=== PATIENT | male | born 1995 | race Caucasian/White ===

== ENCOUNTER 2016-12-09 21:52 | Inpatient (IN) | payer MEDICAID ==
[~2016-12-09] VITALS: Ht 170.2 cm; Wt 83.0 kg
[~2016-12-09 21:52] MED LIST: FLUO-191 PO; HALO5 PO; MOM30 PO; OLAN10TA6 PO; PRAZ1 PO; RISP4 PO; TRAZ-144 PO
[2016-12-10] MEDS ORDERED: HALOPERIDOL LACTATE 5 MG/ML VIAL IM ONE
[2016-12-10] MEDS ORDERED: LORazepam 2 MG/ML VIAL IVP ONE
[2016-12-10] MEDS ORDERED: DiphenhydrAMINE HCL 50 MG/ML VIAL IM ONE
[2016-12-10] MEDS ORDERED: LORazepam 2 MG/ML VIAL IM ONE (00:15)
[2016-12-10 00:27] LABS: BASOPHILS # (AUTO) 0.03 K/uL (0.00-0.20); BASOPHILS % (AUTO) 0.4 % (0.0-2.0); EOSINOPHILS # (AUTO) 0.07 K/uL (0.00-0.70); EOSINOPHILS % (AUTO) 1.01 % (1.0-6.0); HEMATOCRIT 46.7 % (41-53); HEMOGLOBIN 15.4 g/dL (13.5-17.5); LYMPHOCYTES # (AUTO) 1.7 K/uL (1.0-4.8); LYMPHOCYTES % (AUTO) 23.6 % (22.0-44.0); MEAN CORPUSCULAR HEMOGLOBIN 30.2 pg (26.0-34.0); MEAN CORPUSCULAR VOLUME 92 fL (80-100); MONOCYTES # (AUTO) 0.7 K/uL (0.1-1.0); NEUTROPHILS # (AUTO) 4.8 K/uL (1.8-7.7); PLATELET COUNT (AUTO) 164 K/uL (150-450); RED CELL DISTRIBUTION WIDTH 12.6 % (11.5-14.5); WHITE BLOOD COUNT (AUTO) 7.3 K/uL (4.5-11.0)
[2016-12-10 00:37] LABS: ANION GAP 13 mmol/L (8-16); CALCIUM, TOTAL 8.7 mg/dL (8.8-10.5); CARBON DIOXIDE 25 mmol/L (22-29); CHLORIDE 101 mmol/L (98-107); GLOMERULAR FILTR. RATE CALC > 60 mL/min (>60); POTASSIUM 3.3 mmol/L (3.5-5.1); SODIUM SERUM 139 mmol/L (136-145); UREA NITROGEN, BLOOD 9 mg/dL (7-18)
[2016-12-10 00:44] LABS: ALANINE AMINOTRANSFERASE 18 U/L (12-78); ALBUMIN 3.9 g/dL (3.4-5.0); ASPARTATE AMINOTRANSFERASE 28 U/L (15-37); BILIRUBIN,TOTAL 0.7 mg/dL (0.1-1.0); TOTAL PROTEIN, SERUM 7.5 g/dL (6.4-8.2)
[2016-12-10] MEDS ORDERED: LORazepam 2 MG TABLET PO PRN (10:15)
[2016-12-10] MEDS ORDERED: ZOLPIDEM TARTRATE 10 MG TABLET PO PRN (10:15)
[2016-12-10] MEDS ORDERED: HALOPERIDOL 5 MG TABLET PO PRN (10:15)
[2016-12-10 13:32] VITALS: BP 118/60
[2016-12-10] MEDS ORDERED: PRAZ2 PO (13:32)
[2016-12-10] MEDS ORDERED: OLAN5Z PO (13:32)
[2016-12-10] MEDS ORDERED: -PHARMACY VACCINE NOTE- MISC ONE ×2 (13:45)
[2016-12-10] MEDS ORDERED: INFLUENZA VIRUS VACCINE QVS 2016-17 (3YR+)/PF 60 MCG/0.5 ML SYRINGE IM ONE (13:45)
[2016-12-10] MEDS ORDERED: POTASSIUM CHLORIDE 20 MEQ ER TABLET PO ONE (17:00)
[2016-12-10 17:33] VITALS: BP 123/66
[2016-12-10] MEDS: TraZODone HCL 100 MG TABLET PO SCH (21:03)
[2016-12-11 06:45] VITALS: BP 112/62
[2016-12-11 08:09] VITALS: BP 110/69
[2016-12-11] MEDS: RisperiDONE 3 MG TABLET PO SCH ×2 (08:36→16:36)
[2016-12-11] MEDS ORDERED: LOPERAMIDE HCL 2 MG CAPSULE PO PRN (10:00)
[2016-12-11] MEDS ORDERED: BACITRACIN 28.4 GM OINTMENT TP PRN (10:00)
[2016-12-11] MEDS ORDERED: MAG HYDROX/AL HYDROX/SIMETH ES 30 ML SUSPENSION UDCUP PO PRN (10:00)
[2016-12-11] MEDS ORDERED: MAGNESIUM HYDROXIDE SUSPENSION 30 ML UDCUP PO PRN (10:00)
[2016-12-11] MEDS ORDERED: IBUPROFEN 600 MG TABLET PO PRN (10:00)
[2016-12-11] MEDS ORDERED: ONDANSETRON HCL 4 MG TABLET PO PRN (10:00)
[2016-12-11] MEDS ORDERED: CloNIDine HCL 0.1 MG TABLET PO PRN (10:00)
[2016-12-11] MEDS ORDERED: PETROLATUM,WHITE 71 GM JELLY TP PRN (10:00)
[2016-12-11] MEDS ORDERED: ALBUTEROL SULFATE HFA 90 MCG/PUFF 8 GM INHALER IH PRN (10:00)
[2016-12-11] MEDS ORDERED: ACETAMINOPHEN 325 MG TABLET PO PRN (10:00)
[2016-12-11] MEDS ORDERED: BENZOCAINE/MENTHOL LOZENGE MM PRN (10:00)
[2016-12-11 16:38] VITALS: BP 124/71
[2016-12-11] MEDS: TraZODone HCL 100 MG TABLET PO SCH (20:40)
[2016-12-12 00:09] VITALS: BP 117/69
[2016-12-12 08:09] VITALS: BP 124/76
[2016-12-12] MEDS: RisperiDONE 3 MG TABLET PO SCH ×2 (09:44→16:50)
[2016-12-12 16:00] VITALS: BP 118/64
[2016-12-12] MEDS: TraZODone HCL 100 MG TABLET PO SCH (20:38)
[2016-12-13 00:17] VITALS: BP 121/68
[2016-12-13 08:37] VITALS: BP 129/75
[2016-12-13] MEDS: RisperiDONE 3 MG TABLET PO SCH ×2 (08:46→16:42)
[2016-12-13 16:22] VITALS: BP 109/68
[2016-12-13] MEDS: TraZODone HCL 100 MG TABLET PO SCH (20:40)
[2016-12-14 01:22] VITALS: BP 101/65
[2016-12-14] MEDS ORDERED: RISP3 PO (08:10)
[2016-12-14 09:02] VITALS: BP 134/76
[2016-12-14] MEDS: RisperiDONE 3 MG TABLET PO SCH (09:07)
== END 2016-12-14 11:40 | disposition home or self-care (01) | DRG 750 ==
LOC: EMS 21:53 → B2S 12-10 10:07
PROVIDERS: ADMIT Psychiatry & Neurology Psychiatry; ATTEND Psychiatry & Neurology Psychiatry
DX: F20.0 Paranoid schizophrenia (principal); F15.20 Other stimulant dependence, uncomplicated; F17.200 Nicotine dependence, unspecified, uncomplicated; G47.00 Insomnia, unspecified; E87.6 Hypokalemia; F15.10 Other stimulant abuse, uncomplicated; Z79.899 Other long term (current) drug therapy
CPT/HCPCS: 84132; 96372; 99291; G0480; J1200; J1630; J2060

== ENCOUNTER 2017-12-19 21:16 | Inpatient (IN) | payer MEDICAID ==
[~2017-12-19] VITALS: Ht 170.2 cm; Wt 78.0 kg
[~2017-12-19 21:16] MED LIST changes: -FLUO-191 PO; -HALO5 PO; -MOM30 PO; -OLAN10TA6 PO; -PRAZ1 PO; +RISP3 PO; -RISP4 PO
[2017-12-19 21:54] LABS: BASOPHILS % (AUTO) 0.5 % (0.0-2.0); EOSINOPHILS % (AUTO) 0 % (1.0-6.0); HEMATOCRIT 50.4 % (41-53); HEMOGLOBIN 17.1 g/dL (13.5-17.5); LYMPHOCYTES % (AUTO) 9.8 % (22.0-44.0); MEAN CORPUSCULAR HEMOGLOBIN 31.1 pg (26.0-34.0); MEAN CORPUSCULAR HGB CONC 33.8 G/dL (31.0-37.0); MEAN CORPUSCULAR VOLUME 92 fL (80-100); MONOCYTES # (AUTO) 0.4 K/uL (0.1-1.0); MONOCYTES % (AUTO) 3.4 % (2.0-9.0); PLATELET COUNT (AUTO) 172 K/uL (150-450); RED BLOOD CELL COUNT(AUTO) 5.48 MIL/uL (4.50-5.90); RED CELL DISTRIBUTION WIDTH 13.1 % (11.5-14.5)
[2017-12-19 21:57] LABS: NEUTROPHILS % (AUTO) 86.3 % (40.0-70.0)
[2017-12-19 22:04] LABS: AMPHET/METH SCREEN,URINE NEGATIVE (NEGATIVE); BARBITURATE SCREEN, URINE NEGATIVE (NEGATIVE); BENZODIAZEPINES SCREEN,URINE NEGATIVE (NEGATIVE); CANNABINOID SCREEN,URINE NEGATIVE (NEGATIVE); COCAINE SCREEN,URINE NEGATIVE (NEGATIVE); METHADONE SCREEN, URINE NEGATIVE (NEGATIVE); OPIATE SCREEN,URINE NEGATIVE (NEGATIVE)
[2017-12-19 22:07] LABS: PHENCYCLIDINE SCREEN,URINE NEGATIVE (NEGATIVE)
[2017-12-19 22:15] LABS: ANION GAP 10 mmol/L (8-16); CALCIUM, TOTAL 9.5 mg/dL (8.8-10.5); CARBON DIOXIDE 27 mmol/L (22-29); CHLORIDE 100 mmol/L (98-107); CREATININE 0.94 mg/dL (0.60-1.30); GLOMERULAR FILTR. RATE CALC > 60 mL/min (>60); GLUCOSE,RANDOM 105 mg/dL (70-110); POTASSIUM 3.7 mmol/L (3.5-5.1); SODIUM SERUM 137 mmol/L (136-145); UREA NITROGEN, BLOOD 7 mg/dL (7-18)
[2017-12-19 22:21] LABS: ALANINE AMINOTRANSFERASE 19 U/L (12-78); ALBUMIN 4.8 g/dL (3.4-5.0); ALKALINE PHOSPHATASE 79 U/L (46-116); ASPARTATE AMINOTRANSFERASE 18 U/L (15-37); BILIRUBIN,TOTAL 0.4 mg/dL (0.1-1.0); TOTAL PROTEIN, SERUM 8.4 g/dL (6.4-8.2)
[2017-12-19] MEDS ORDERED: LORazepam 2 MG TABLET PO PRN (23:30)
[2017-12-19] MEDS ORDERED: HALOPERIDOL 5 MG TABLET PO PRN (23:30)
[2017-12-19] MEDS ORDERED: ZOLPIDEM TARTRATE 10 MG TABLET PO PRN (23:30)
[2017-12-19] MEDS ORDERED: LIDOCAINE HCL 1%/EPI 1:200,000/PF 10 ML VIAL INJ ONE (23:45)
[2017-12-20] MEDS ORDERED: BACITRACIN 0.9 GM PACKET OINTMENT TP ONE (01:40)
[2017-12-20 02:07] VITALS: BP 132/98
[2017-12-20 07:20] LABS: CHOL/HDL RATIO 3.9 (4.2-7.3); CHOLESTEROL 181 mg/dL (131-200); HDL CHOLESTEROL 46 mg/dL (40-60); LDL CHOL (CALC.) 120 mg/dL (0-130); TRIGLYCERIDES 73 mg/dL (15-150)
[2017-12-20] MEDS: RisperiDONE 3 MG TABLET PO SCH ×3 (09:15→20:29)
[2017-12-20 10:11] VITALS: BP 120/62
[2017-12-20] MEDS ORDERED: RAPID SEQUENCE KIT [RSI] 1 EACH KIT ONE (10:50)
[2017-12-20] MEDS ORDERED: HALOPERIDOL LACTATE 5 MG/ML VIAL IM PRN (17:45)
[2017-12-20 19:26] VITALS: BP 122/72
[2017-12-20] MEDS: TraZODone HCL 100 MG TABLET PO SCH (20:30)
[2017-12-21] MEDS ORDERED: TUBERCULIN, PURIFIED PROTEIN DERIVATIVE 5 TU/0.1 ML SYG ID ONE (11:30)
[2017-12-21 13:49] VITALS: BP 104/63
[2017-12-21 16:56] VITALS: BP 120/69
[2017-12-21] MEDS: TraZODone HCL 100 MG TABLET PO SCH (20:12)
[2017-12-21] MEDS: RisperiDONE 3 MG TABLET PO SCH (20:12)
[2017-12-22 09:03] VITALS: BP 116/60
[2017-12-22 16:33] VITALS: BP 132/72
[2017-12-22] MEDS: RisperiDONE 3 MG TABLET PO SCH (20:35)
[2017-12-22] MEDS: TraZODone HCL 100 MG TABLET PO SCH (21:00)
[2017-12-23 10:41] VITALS: BP 137/62
[2017-12-23] MEDS: RisperiDONE 3 MG TABLET PO SCH (20:11)
[2017-12-23] MEDS: TraZODone HCL 100 MG TABLET PO SCH (20:14)
[2017-12-23 21:44] VITALS: BP 122/78
[2017-12-24 00:05] VITALS: BP 124/80
[2017-12-24 08:00] VITALS: BP 126/78
[2017-12-24 20:11] VITALS: BP 127/78
[2017-12-24] MEDS: RisperiDONE 3 MG TABLET PO SCH (20:40)
[2017-12-24] MEDS: TraZODone HCL 100 MG TABLET PO SCH (20:40)
[2017-12-25 08:00] VITALS: BP 104/71
[2017-12-25 18:30] VITALS: BP 123/74
[2017-12-25] MEDS: TraZODone HCL 100 MG TABLET PO SCH (20:18)
[2017-12-25] MEDS: RisperiDONE 3 MG TABLET PO SCH (20:19)
[2017-12-26 09:00] VITALS: BP 130/86
[2017-12-26 16:00] VITALS: BP 129/78
[2017-12-26] MEDS: RisperiDONE 3 MG TABLET PO SCH (20:20)
[2017-12-26] MEDS: TraZODone HCL 100 MG TABLET PO SCH (20:21)
[2017-12-27 08:00] VITALS: BP 122/66
[2017-12-27 16:15] VITALS: BP 125/74
[2017-12-27] MEDS: RisperiDONE 3 MG TABLET PO SCH (20:32)
[2017-12-27] MEDS: TraZODone HCL 100 MG TABLET PO SCH (21:00)
[2017-12-28 08:00] VITALS: BP 112/70
[2017-12-28 18:26] VITALS: BP 139/91
[2017-12-28] MEDS: TraZODone HCL 100 MG TABLET PO SCH (20:06)
[2017-12-28] MEDS: RisperiDONE 3 MG TABLET PO SCH (20:07)
[2017-12-29 08:00] VITALS: BP 148/82
[2017-12-29] MEDS: SERTRALINE HCL 50 MG TABLET PO SCH (09:00)
[2017-12-29 17:22] VITALS: BP 135/80
[2017-12-29] MEDS: TraZODone HCL 100 MG TABLET PO SCH (20:17)
[2017-12-29] MEDS: RisperiDONE 3 MG TABLET PO SCH (20:17)
[2017-12-30 08:00] VITALS: BP 145/74
[2017-12-30] MEDS: SERTRALINE HCL 50 MG TABLET PO SCH (09:00)
[2017-12-30 16:34] VITALS: BP 121/89
[2017-12-30] MEDS: RisperiDONE 3 MG TABLET PO SCH (20:21)
[2017-12-30] MEDS: TraZODone HCL 100 MG TABLET PO SCH (20:22)
[2017-12-31] MEDS ORDERED: RISP3 PO (09:58)
[2017-12-31 10:17] VITALS: BP 143/78
== END 2017-12-31 16:00 | disposition home or self-care (01) | DRG 740 ==
LOC: EMS 21:17 → 3EI 23:30
PROVIDERS: ADMIT Psychiatry & Neurology Child & Adolescent Psychiatry; ATTEND Psychiatry & Neurology Child & Adolescent Psychiatry
PROC: 0WQ6XZZ Repair Neck, External Approach (ICD-10-PCS; principal; 2017-12-19)
DX: F25.1 Schizoaffective disorder, depressive type (principal); R45.851 Suicidal ideations; S11.91XA Laceration without foreign body of unspecified part of neck, initial encounter; L30.9 Dermatitis, unspecified; X78.8XXA Intentional self-harm by other sharp object, initial encounter; F17.210 Nicotine dependence, cigarettes, uncomplicated; F10.10 Alcohol abuse, uncomplicated; G47.00 Insomnia, unspecified; F15.90 Other stimulant use, unspecified, uncomplicated; F12.90 Cannabis use, unspecified, uncomplicated; Y93.89 Activity, other specified; Y92.89 Other specified places as the place of occurrence of the external cause; Z86.59 Personal history of other mental and behavioral disorders; Z79.899 Other long term (current) drug therapy
CPT/HCPCS: 12005; 99285; G0480; J3490

== ENCOUNTER 2018-01-10 10:39 | Inpatient (IN) | payer MEDICAID ==
[~2018-01-10] VITALS: Ht 170.2 cm; Wt 76.9 kg
[~2018-01-10 10:39] MED LIST changes: -TRAZ-144 PO
[2018-01-10 11:26] LABS: BASOPHILS % (AUTO) 0.5 % (0.0-2.0); EOSINOPHILS % (AUTO) 0.7 % (1.0-6.0); HEMATOCRIT 48.3 % (41-53); HEMOGLOBIN 16.6 g/dL (13.5-17.5); LYMPHOCYTES # (AUTO) 1.3 K/uL (1.0-4.8); LYMPHOCYTES % (AUTO) 21.3 % (22.0-44.0); MEAN CORPUSCULAR HEMOGLOBIN 31.7 pg (26.0-34.0); MEAN CORPUSCULAR HGB CONC 34.4 G/dL (31.0-37.0); MEAN CORPUSCULAR VOLUME 92 fL (80-100); MONOCYTES # (AUTO) 0.5 K/uL (0.1-1.0); MONOCYTES % (AUTO) 8.2 % (2.0-9.0); NEUTROPHILS # (AUTO) 4.3 K/uL (1.8-7.7); NEUTROPHILS % (AUTO) 69.3 % (40.0-70.0); PLATELET COUNT (AUTO) 193 K/uL (150-450); RED BLOOD CELL COUNT(AUTO) 5.23 MIL/uL (4.50-5.90); RED CELL DISTRIBUTION WIDTH 13.5 % (11.5-14.5)
[2018-01-10 11:36] LABS: ANION GAP 9 mmol/L (8-16); CALCIUM, TOTAL 9.2 mg/dL (8.8-10.5); CARBON DIOXIDE 28 mmol/L (22-29); CHLORIDE 104 mmol/L (98-107); CREATININE 0.93 mg/dL (0.60-1.30); GLOMERULAR FILTR. RATE CALC > 60 mL/min (>60); GLUCOSE,RANDOM 107 mg/dL (70-110); POTASSIUM 3.8 mmol/L (3.5-5.1); SODIUM SERUM 141 mmol/L (136-145); UREA NITROGEN, BLOOD 6 mg/dL (7-18)
[2018-01-10 11:42] LABS: ALANINE AMINOTRANSFERASE 21 U/L (12-78); ALBUMIN 4.2 g/dL (3.4-5.0); ALKALINE PHOSPHATASE 70 U/L (46-116); ASPARTATE AMINOTRANSFERASE 16 U/L (15-37); BILIRUBIN,TOTAL 0.6 mg/dL (0.1-1.0); TOTAL PROTEIN, SERUM 7.5 g/dL (6.4-8.2)
[2018-01-10 11:51] LABS: PLATELET MORPHOLOGY COMMENT GIANT PLTS PRESENT
[2018-01-10] MEDS ORDERED: LORazepam 2 MG TABLET PO ONE (12:30)
[2018-01-10] MEDS ORDERED: HALOPERIDOL 5 MG TABLET PO ONE (12:30)
[2018-01-10 13:25] LABS: AMPHET/METH SCREEN,URINE NEGATIVE (NEGATIVE); BARBITURATE SCREEN, URINE NEGATIVE (NEGATIVE); BENZODIAZEPINES SCREEN,URINE NEGATIVE (NEGATIVE); CANNABINOID SCREEN,URINE NEGATIVE (NEGATIVE); COCAINE SCREEN,URINE NEGATIVE (NEGATIVE); METHADONE SCREEN, URINE NEGATIVE (NEGATIVE); OPIATE SCREEN,URINE NEGATIVE (NEGATIVE)
[2018-01-10 13:28] LABS: PHENCYCLIDINE SCREEN,URINE NEGATIVE (NEGATIVE)
[2018-01-10] MEDS ORDERED: ZOLPIDEM TARTRATE 10 MG TABLET PO PRN (13:30)
[2018-01-10] MEDS ORDERED: HALOPERIDOL 5 MG TABLET PO PRN (13:30)
[2018-01-10] MEDS ORDERED: LORazepam 2 MG TABLET PO PRN (13:30)
[2018-01-10 16:20] VITALS: BP 100/61
[2018-01-10] MEDS ORDERED: INFLUENZA VIRUS VACCINE QVS 2017-18 (3YR+)/PF 60 MCG/0.5 ML SYRINGE IM ONE (16:30)
[2018-01-11 08:22] LABS: BASOPHILS % (AUTO) 0.5 % (0.0-2.0); EOSINOPHILS % (AUTO) 1.4 % (1.0-6.0); HEMATOCRIT 45.7 % (41-53); HEMOGLOBIN 15.5 g/dL (13.5-17.5); LYMPHOCYTES % (AUTO) 27.4 % (22.0-44.0); MEAN CORPUSCULAR HEMOGLOBIN 31.5 pg (26.0-34.0); MEAN CORPUSCULAR VOLUME 93 fL (80-100); MONOCYTES # (AUTO) 0.7 K/uL (0.1-1.0); MONOCYTES % (AUTO) 9.7 % (2.0-9.0); NEUTROPHILS # (AUTO) 4.4 K/uL (1.8-7.7); PLATELET COUNT (AUTO) 190 K/uL (150-450); RED BLOOD CELL COUNT(AUTO) 4.94 MIL/uL (4.50-5.90); RED CELL DISTRIBUTION WIDTH 13.3 % (11.5-14.5)
[2018-01-11 08:45] VITALS: BP 111/71
[2018-01-11 08:57] LABS: ALANINE AMINOTRANSFERASE 16 U/L (12-78); ALBUMIN 3.8 g/dL (3.4-5.0); ALKALINE PHOSPHATASE 64 U/L (46-116); ANION GAP 8 mmol/L (8-16); ASPARTATE AMINOTRANSFERASE 12 U/L (15-37); BILIRUBIN,TOTAL 0.5 mg/dL (0.1-1.0); CALCIUM, TOTAL 9.1 mg/dL (8.8-10.5); CARBON DIOXIDE 29 mmol/L (22-29); CHLORIDE 107 mmol/L (98-107); CREATININE 0.81 mg/dL (0.60-1.30); FREE T4 (FREE THYROXINE) 1.13 ng/dL (0.76-1.46); GLOMERULAR FILTR. RATE CALC > 60 mL/min (>60); GLUCOSE,RANDOM 95 mg/dL (70-110); SODIUM SERUM 144 mmol/L (136-145); THYROID STIMULATING HORMONE 1.95 uIU/mL (0.36-3.74); UREA NITROGEN, BLOOD 9 mg/dL (7-18)
[2018-01-11 16:34] VITALS: BP 113/65
[2018-01-11] MEDS: RisperiDONE 3 MG TABLET PO SCH (16:59)
[2018-01-11] MEDS: TraZODone HCL 100 MG TABLET PO SCH (20:29)
[2018-01-12] MEDS: RisperiDONE 3 MG TABLET PO SCH ×2 (09:00→16:16)
[2018-01-12] MEDS: SERTRALINE HCL 50 MG TABLET PO SCH (09:00)
[2018-01-12 16:17] VITALS: BP 108/65
[2018-01-12] MEDS: TraZODone HCL 100 MG TABLET PO SCH (20:21)
[2018-01-13 06:38] VITALS: BP 110/62
[2018-01-13] MEDS: SERTRALINE HCL 50 MG TABLET PO SCH (10:01)
[2018-01-13] MEDS: RisperiDONE 3 MG TABLET PO SCH ×2 (10:01→17:22)
[2018-01-13] MEDS: TraZODone HCL 100 MG TABLET PO SCH (20:28)
[2018-01-14] MEDS: RisperiDONE 3 MG TABLET PO SCH ×2 (09:44→16:25)
[2018-01-14] MEDS: SERTRALINE HCL 50 MG TABLET PO SCH (09:44)
[2018-01-14] MEDS: TraZODone HCL 100 MG TABLET PO SCH (20:40)
[2018-01-15] MEDS: RisperiDONE 3 MG TABLET PO SCH ×2 (08:24→16:51)
[2018-01-15] MEDS: SERTRALINE HCL 50 MG TABLET PO SCH (08:24)
[2018-01-15 16:43] VITALS: BP 109/69
[2018-01-15] MEDS: TraZODone HCL 100 MG TABLET PO SCH (21:02)
[2018-01-16 06:01] VITALS: BP 106/62
[2018-01-16 08:37] VITALS: BP 108/65
[2018-01-16] MEDS: SERTRALINE HCL 50 MG TABLET PO SCH (08:51)
[2018-01-16] MEDS: RisperiDONE 3 MG TABLET PO SCH ×2 (08:51→16:09)
[2018-01-16 18:00] VITALS: BP 112/66
[2018-01-16] MEDS: TraZODone HCL 100 MG TABLET PO SCH (20:49)
[2018-01-17] MEDS: RisperiDONE 3 MG TABLET PO SCH ×2 (09:14→16:22)
[2018-01-17] MEDS: SERTRALINE HCL 50 MG TABLET PO SCH (09:14)
[2018-01-17] MEDS: TraZODone HCL 100 MG TABLET PO SCH (20:19)
[2018-01-18 08:19] VITALS: BP 118/68
[2018-01-18] MEDS: SERTRALINE HCL 50 MG TABLET PO SCH (09:30)
[2018-01-18] MEDS: RisperiDONE 3 MG TABLET PO SCH ×2 (09:30→17:31)
[2018-01-18 17:49] VITALS: BP 120/60
[2018-01-18] MEDS: TraZODone HCL 100 MG TABLET PO SCH (20:47)
[2018-01-19 09:01] VITALS: BP 105/63
[2018-01-19] MEDS: RisperiDONE 3 MG TABLET PO SCH ×2 (09:32→16:16)
[2018-01-19] MEDS: SERTRALINE HCL 50 MG TABLET PO SCH (09:32)
[2018-01-19 16:34] VITALS: BP 119/83
[2018-01-19] MEDS: TraZODone HCL 100 MG TABLET PO SCH (20:42)
[2018-01-20 07:07] VITALS: BP 110/68
[2018-01-20] MEDS: SERTRALINE HCL 50 MG TABLET PO SCH (08:52)
[2018-01-20] MEDS: RisperiDONE 3 MG TABLET PO SCH (08:52)
[2018-01-20] MEDS ORDERED: RISP3 PO (09:39)
[2018-01-20] MEDS ORDERED: TRAZ-147 PO (09:39)
[2018-01-20] MEDS ORDERED: SERT50TA12 PO (09:39)
== END 2018-01-20 13:57 | disposition home or self-care (01) | DRG 750 ==
LOC: EMS 10:40 → B2S 13:41
PROVIDERS: ADMIT Psychiatry & Neurology Child & Adolescent Psychiatry; ATTEND Psychiatry & Neurology Child & Adolescent Psychiatry
PROC: 3E0234Z Introduction of Serum, Toxoid and Vaccine into Muscle, Percutaneous Approach (ICD-10-PCS; principal; 2018-01-10)
DX: F25.0 Schizoaffective disorder, bipolar type (principal); F15.20 Other stimulant dependence, uncomplicated; F17.210 Nicotine dependence, cigarettes, uncomplicated; F12.90 Cannabis use, unspecified, uncomplicated; E87.6 Hypokalemia; L30.9 Dermatitis, unspecified; L70.0 Acne vulgaris; F10.10 Alcohol abuse, uncomplicated; Z79.899 Other long term (current) drug therapy; Z86.59 Personal history of other mental and behavioral disorders; Z23 Encounter for immunization
CPT/HCPCS: 84439; 84443; 87081; 99285; G0480

== ENCOUNTER 2018-04-21 22:56 | Inpatient (IN) | payer MEDICAID ==
[~2018-04-21] VITALS: Ht 172.7 cm; Wt 71.2 kg
[~2018-04-21 22:56] MED LIST changes: +SERT50TA12 PO; +TRAZ-220 PO
[2018-04-21] MEDS ORDERED: HALOPERIDOL 5 MG TABLET PO PRN (23:45)
[2018-04-21] MEDS ORDERED: ZOLPIDEM TARTRATE 10 MG TABLET PO PRN (23:45)
[2018-04-22 00:19] VITALS: BP 122/56
[2018-04-22 08:34] VITALS: BP 100/60
[2018-04-22] MEDS ORDERED: ALBUTEROL SULFATE HFA 90 MCG/PUFF 8 GM INHALER IH PRN (16:30)
[2018-04-22] MEDS ORDERED: MAG HYDROX/AL HYDROX/SIMETH ES 30 ML SUSPENSION UDCUP PO PRN (16:30)
[2018-04-22] MEDS ORDERED: IBUPROFEN 400 MG TABLET PO PRN (16:30)
[2018-04-22] MEDS ORDERED: DOCUSATE SODIUM 100 MG CAPSULE PO PRN (16:30)
[2018-04-22] MEDS ORDERED: PETROLATUM,WHITE 71 GM JELLY TP PRN (16:30)
[2018-04-22] MEDS ORDERED: MAGNESIUM HYDROXIDE SUSPENSION 30 ML UDCUP PO PRN (16:30)
[2018-04-22] MEDS ORDERED: ACETAMINOPHEN 325 MG TABLET PO PRN (16:30)
[2018-04-22] MEDS: RisperiDONE 3 MG TABLET PO SCH (16:47)
[2018-04-22] MEDS: TraZODone HCL 100 MG TABLET PO SCH (20:14)
[2018-04-23 00:58] VITALS: BP 121/68
[2018-04-23] MEDS: NICOTINE 14 MG/24 HOUR PATCH TD SCH (09:19)
[2018-04-23] MEDS: RisperiDONE 3 MG TABLET PO SCH ×2 (09:19→16:46)
[2018-04-23] MEDS: SERTRALINE HCL 50 MG TABLET PO SCH (09:27)
[2018-04-23 16:16] VITALS: BP 106/64
[2018-04-23] MEDS: LORazepam 2 MG TABLET PO PRN (16:46)
[2018-04-23] MEDS: TraZODone HCL 100 MG TABLET PO SCH (20:27)
[2018-04-24 05:26] VITALS: BP 118/66
[2018-04-24 08:16] VITALS: BP 110/70
[2018-04-24 08:17] LABS: BASOPHILS % (AUTO) 0.5 % (0.0-2.0); HEMATOCRIT 38.4 % (41-53); HEMOGLOBIN 13.3 g/dL (13.5-17.5); LYMPHOCYTES # (AUTO) 1.7 K/uL (1.0-4.8); LYMPHOCYTES % (AUTO) 25.7 % (22.0-44.0); MEAN CORPUSCULAR HEMOGLOBIN 32.3 pg (26.0-34.0); MEAN CORPUSCULAR HGB CONC 34.6 G/dL (31.0-37.0); MEAN CORPUSCULAR VOLUME 93 fL (80-100); MONOCYTES # (AUTO) 0.6 K/uL (0.1-1.0); MONOCYTES % (AUTO) 8.9 % (2.0-9.0); NEUTROPHILS # (AUTO) 4.3 K/uL (1.8-7.7); NEUTROPHILS % (AUTO) 62.9 % (40.0-70.0); PLATELET COUNT (AUTO) 169 K/uL (150-450); RED BLOOD CELL COUNT(AUTO) 4.12 MIL/uL (4.50-5.90); RED CELL DISTRIBUTION WIDTH 13.2 % (11.5-14.5)
[2018-04-24 08:25] LABS: HEMOGLOBIN A1C 5.8 % (4.5-6.2)
[2018-04-24 08:40] LABS: ALANINE AMINOTRANSFERASE 23 U/L (12-78); ALKALINE PHOSPHATASE 57 U/L (46-116); ANION GAP 7 mmol/L (8-16); ASPARTATE AMINOTRANSFERASE 23 U/L (15-37); BILIRUBIN,TOTAL 0.3 mg/dL (0.1-1.0); CARBON DIOXIDE 27 mmol/L (22-29); CHLORIDE 104 mmol/L (98-107); CHOL/HDL RATIO 2.8 (4.2-7.3); CHOLESTEROL 110 mg/dL (131-200); CREATININE 0.72 mg/dL (0.60-1.30); FREE T4 (FREE THYROXINE) 0.83 ng/dL (0.76-1.46); GLOMERULAR FILTR. RATE CALC > 60 mL/min (>60); GLUCOSE,RANDOM 85 mg/dL (70-110); HDL CHOLESTEROL 40 mg/dL (40-60); LDL CHOL (CALC.) 61 mg/dL (0-130); POTASSIUM 3.4 mmol/L (3.5-5.1); SODIUM SERUM 138 mmol/L (136-145); THYROID STIMULATING HORMONE 2.07 uIU/mL (0.36-3.74); TOTAL PROTEIN, SERUM 6.4 g/dL (6.4-8.2); TRIGLYCERIDES 44 mg/dL (15-150); UREA NITROGEN, BLOOD 7 mg/dL (7-18)
[2018-04-24] MEDS: RisperiDONE 3 MG TABLET PO SCH ×2 (09:47→16:36)
[2018-04-24] MEDS: SERTRALINE HCL 50 MG TABLET PO SCH (09:47)
[2018-04-24] MEDS: NICOTINE 14 MG/24 HOUR PATCH TD SCH (09:48)
[2018-04-24] MEDS ORDERED: POTASSIUM CHLORIDE 20 MEQ ER TABLET PO ONE (14:15)
[2018-04-24 16:00] VITALS: BP 110/62
[2018-04-24] MEDS: LORazepam 2 MG TABLET PO PRN (16:36)
[2018-04-24] MEDS: TraZODone HCL 100 MG TABLET PO SCH (20:24)
[2018-04-25 06:19] VITALS: BP 106/58
[2018-04-25 08:32] VITALS: BP 110/65
[2018-04-25] MEDS: RisperiDONE 3 MG TABLET PO SCH ×2 (09:52→16:30)
[2018-04-25] MEDS: SERTRALINE HCL 50 MG TABLET PO SCH (09:52)
[2018-04-25] MEDS: NICOTINE 14 MG/24 HOUR PATCH TD SCH (09:59)
[2018-04-25 16:33] VITALS: BP 116/64
[2018-04-25] MEDS: TraZODone HCL 100 MG TABLET PO SCH (20:30)
[2018-04-26 00:18] VITALS: BP 100/61
[2018-04-26 08:39] VITALS: BP 102/64
[2018-04-26] MEDS: NICOTINE 14 MG/24 HOUR PATCH TD SCH (09:00)
[2018-04-26] MEDS: SERTRALINE HCL 50 MG TABLET PO SCH (09:18)
[2018-04-26] MEDS: RisperiDONE 3 MG TABLET PO SCH ×2 (09:18→15:54)
[2018-04-26 17:07] VITALS: BP 108/60
[2018-04-26] MEDS: BACITRACIN 28.4 GM OINTMENT TP SCH (17:33)
[2018-04-26] MEDS: TraZODone HCL 100 MG TABLET PO SCH (20:24)
[2018-04-27 03:59] VITALS: BP 110/61
[2018-04-27 08:42] VITALS: BP 106/71
[2018-04-27] MEDS: NICOTINE 14 MG/24 HOUR PATCH TD SCH (09:00)
[2018-04-27] MEDS: RisperiDONE 3 MG TABLET PO SCH ×2 (09:20→17:26)
[2018-04-27] MEDS: SERTRALINE HCL 50 MG TABLET PO SCH (09:20)
[2018-04-27] MEDS: BACITRACIN 28.4 GM OINTMENT TP SCH ×2 (09:20→17:26)
[2018-04-27] MEDS: FERROUS SULFATE 325 MG EC TABLET PO SCH (17:26)
[2018-04-27 18:18] VITALS: BP 128/65
[2018-04-27] MEDS: TraZODone HCL 100 MG TABLET PO SCH (21:35)
[2018-04-28 06:35] VITALS: BP 130/82
[2018-04-28 08:53] VITALS: BP 106/74
[2018-04-28] MEDS: RisperiDONE 3 MG TABLET PO SCH ×2 (08:57→16:58)
[2018-04-28] MEDS: DIVALPROEX SODIUM 250 MG ER TABLET PO SCH ×2 (08:57→16:58)
[2018-04-28] MEDS: NICOTINE 14 MG/24 HOUR PATCH TD SCH (08:57)
[2018-04-28] MEDS: FERROUS SULFATE 325 MG EC TABLET PO SCH ×2 (08:57→16:59)
[2018-04-28] MEDS: SERTRALINE HCL 50 MG TABLET PO SCH (08:57)
[2018-04-28] MEDS: BACITRACIN 28.4 GM OINTMENT TP SCH ×2 (08:57→16:59)
[2018-04-28 16:08] VITALS: BP 110/62
[2018-04-28] MEDS: LORazepam 2 MG TABLET PO PRN (16:59)
[2018-04-28] MEDS: TraZODone HCL 100 MG TABLET PO SCH (20:48)
[2018-04-29 00:36] VITALS: BP 100/61
[2018-04-29] MEDS: NICOTINE 14 MG/24 HOUR PATCH TD SCH (09:00)
[2018-04-29] MEDS: DIVALPROEX SODIUM 250 MG ER TABLET PO SCH ×2 (09:22→16:11)
[2018-04-29] MEDS: SERTRALINE HCL 50 MG TABLET PO SCH (09:22)
[2018-04-29] MEDS: FERROUS SULFATE 325 MG EC TABLET PO SCH ×2 (09:22→16:55)
[2018-04-29] MEDS: RisperiDONE 3 MG TABLET PO SCH ×2 (09:22→16:11)
[2018-04-29] MEDS: BACITRACIN 28.4 GM OINTMENT TP SCH ×2 (09:23→16:11)
[2018-04-29] MEDS: LORazepam 2 MG TABLET PO PRN (16:11)
[2018-04-29 16:12] VITALS: BP 110/89
[2018-04-29] MEDS: TraZODone HCL 100 MG TABLET PO SCH (20:17)
[2018-04-30 02:49] VITALS: BP 107/61
[2018-04-30] MEDS: NICOTINE 14 MG/24 HOUR PATCH TD SCH ×2 (08:36→09:00)
[2018-04-30] MEDS: RisperiDONE 3 MG TABLET PO SCH ×2 (08:36→16:35)
[2018-04-30] MEDS: FERROUS SULFATE 325 MG EC TABLET PO SCH ×2 (08:36→16:35)
[2018-04-30] MEDS: SERTRALINE HCL 50 MG TABLET PO SCH (08:37)
[2018-04-30] MEDS: DIVALPROEX SODIUM 250 MG ER TABLET PO SCH ×2 (08:37→16:35)
[2018-04-30] MEDS: BACITRACIN 28.4 GM OINTMENT TP SCH ×2 (08:37→16:35)
[2018-04-30] MEDS: LORazepam 2 MG TABLET PO PRN ×2 (09:19→16:35)
[2018-04-30 16:05] VITALS: BP 110/69
[2018-04-30] MEDS: TraZODone HCL 100 MG TABLET PO SCH (20:19)
[2018-05-01 06:10] VITALS: BP 124/70
[2018-05-01 08:18] LABS: BASOPHILS % (AUTO) 0.4 % (0.0-2.0); EOSINOPHILS % (AUTO) 2.1 % (1.0-6.0); HEMATOCRIT 40.4 % (41-53); HEMOGLOBIN 13.8 g/dL (13.5-17.5); LYMPHOCYTES # (AUTO) 2.4 K/uL (1.0-4.8); LYMPHOCYTES % (AUTO) 41.4 % (22.0-44.0); MEAN CORPUSCULAR HEMOGLOBIN 31.6 pg (26.0-34.0); MEAN CORPUSCULAR HGB CONC 34.1 G/dL (31.0-37.0); MEAN CORPUSCULAR VOLUME 93 fL (80-100); MONOCYTES # (AUTO) 0.7 K/uL (0.1-1.0); MONOCYTES % (AUTO) 12.5 % (2.0-9.0); NEUTROPHILS # (AUTO) 2.5 K/uL (1.8-7.7); NEUTROPHILS % (AUTO) 43.6 % (40.0-70.0); PLATELET COUNT (AUTO) 189 K/uL (150-450); RED BLOOD CELL COUNT(AUTO) 4.35 MIL/uL (4.50-5.90); RED CELL DISTRIBUTION WIDTH 13.2 % (11.5-14.5)
[2018-05-01 08:41] LABS: ALANINE AMINOTRANSFERASE 21 U/L (12-78); ALKALINE PHOSPHATASE 57 U/L (46-116); ANION GAP 5 mmol/L (8-16); ASPARTATE AMINOTRANSFERASE 13 U/L (15-37); BILIRUBIN,TOTAL 0.2 mg/dL (0.1-1.0); CALCIUM, TOTAL 8.3 mg/dL (8.8-10.5); CARBON DIOXIDE 29 mmol/L (22-29); CHLORIDE 105 mmol/L (98-107); GLOMERULAR FILTR. RATE CALC > 60 mL/min (>60); GLUCOSE,RANDOM 84 mg/dL (70-110); POTASSIUM 3.7 mmol/L (3.5-5.1); SODIUM SERUM 139 mmol/L (136-145); TOTAL PROTEIN, SERUM 6.2 g/dL (6.4-8.2); UREA NITROGEN, BLOOD 12 mg/dL (7-18); VALPROIC ACID 24 mcg/mL (50-100)
[2018-05-01 08:54] VITALS: BP 109/77
[2018-05-01] MEDS: NICOTINE 14 MG/24 HOUR PATCH TD SCH (09:00)
[2018-05-01] MEDS: RisperiDONE 3 MG TABLET PO SCH ×2 (09:27→16:09)
[2018-05-01] MEDS: DIVALPROEX SODIUM 250 MG ER TABLET PO SCH ×2 (09:27→16:09)
[2018-05-01] MEDS: SERTRALINE HCL 50 MG TABLET PO SCH (09:27)
[2018-05-01] MEDS: FERROUS SULFATE 325 MG EC TABLET PO SCH ×2 (09:27→16:09)
[2018-05-01] MEDS: BACITRACIN 28.4 GM OINTMENT TP SCH ×2 (09:28→16:10)
[2018-05-01 16:16] VITALS: BP 116/58
[2018-05-01] MEDS: TraZODone HCL 100 MG TABLET PO SCH (20:26)
[2018-05-02 06:50] VITALS: BP 120/70
[2018-05-02] MEDS: SERTRALINE HCL 50 MG TABLET PO SCH (08:49)
[2018-05-02] MEDS: FERROUS SULFATE 325 MG EC TABLET PO SCH ×2 (08:49→16:20)
[2018-05-02] MEDS: LORazepam 2 MG TABLET PO PRN (08:49)
[2018-05-02] MEDS: RisperiDONE 3 MG TABLET PO SCH ×2 (08:49→16:20)
[2018-05-02] MEDS: DIVALPROEX SODIUM 250 MG ER TABLET PO SCH ×2 (08:49→16:20)
[2018-05-02] MEDS: BACITRACIN 28.4 GM OINTMENT TP SCH ×2 (08:51→16:23)
[2018-05-02] MEDS: NICOTINE 14 MG/24 HOUR PATCH TD SCH (08:51)
[2018-05-02 08:56] VITALS: BP 106/75
[2018-05-02 16:27] VITALS: BP 122/73
[2018-05-02] MEDS: TraZODone HCL 100 MG TABLET PO SCH (20:27)
[2018-05-03 01:23] VITALS: BP 112/80
[2018-05-03 08:18] VITALS: BP 101/69
[2018-05-03] MEDS: NICOTINE 14 MG/24 HOUR PATCH TD SCH (09:00)
[2018-05-03] MEDS: FERROUS SULFATE 325 MG EC TABLET PO SCH ×2 (09:12→17:05)
[2018-05-03] MEDS: SERTRALINE HCL 50 MG TABLET PO SCH (09:12)
[2018-05-03] MEDS: RisperiDONE 3 MG TABLET PO SCH ×2 (09:12→16:02)
[2018-05-03] MEDS: DIVALPROEX SODIUM 250 MG ER TABLET PO SCH ×2 (09:12→16:02)
[2018-05-03] MEDS: BACITRACIN 28.4 GM OINTMENT TP SCH (09:13)
[2018-05-03] MEDS: LORazepam 2 MG TABLET PO PRN (15:43)
[2018-05-03 16:00] VITALS: BP 114/68
[2018-05-03] MEDS: TraZODone HCL 100 MG TABLET PO SCH (20:45)
[2018-05-04 01:23] VITALS: BP 113/60
[2018-05-04] MEDS: SERTRALINE HCL 50 MG TABLET PO SCH (08:14)
[2018-05-04] MEDS: FERROUS SULFATE 325 MG EC TABLET PO SCH ×2 (08:14→16:10)
[2018-05-04] MEDS: RisperiDONE 3 MG TABLET PO SCH ×2 (08:15→16:10)
[2018-05-04] MEDS: DIVALPROEX SODIUM 250 MG ER TABLET PO SCH ×2 (08:16→16:10)
[2018-05-04] MEDS: NICOTINE 14 MG/24 HOUR PATCH TD SCH (08:16)
[2018-05-04 08:57] VITALS: BP 110/69
[2018-05-04] MEDS ORDERED: TUBERCULIN, PURIFIED PROTEIN DERIVATIVE 5 TU/0.1 ML SYG ID ONE (13:15)
[2018-05-04] MEDS: LORazepam 2 MG TABLET PO PRN (16:10)
[2018-05-04 16:14] VITALS: BP 116/60
[2018-05-04] MEDS: TraZODone HCL 100 MG TABLET PO SCH (20:44)
[2018-05-05 01:01] VITALS: BP 107/62
[2018-05-05 08:40] VITALS: BP 100/63
[2018-05-05] MEDS: NICOTINE 14 MG/24 HOUR PATCH TD SCH (09:00)
[2018-05-05] MEDS: FERROUS SULFATE 325 MG EC TABLET PO SCH ×2 (09:13→17:13)
[2018-05-05] MEDS: SERTRALINE HCL 50 MG TABLET PO SCH (09:13)
[2018-05-05] MEDS: RisperiDONE 3 MG TABLET PO SCH ×2 (09:13→17:12)
[2018-05-05] MEDS: DIVALPROEX SODIUM 250 MG ER TABLET PO SCH ×2 (09:13→17:13)
[2018-05-05 16:30] VITALS: BP 110/68
[2018-05-05] MEDS: TraZODone HCL 100 MG TABLET PO SCH (19:59)
[2018-05-05] MEDS: LORazepam 2 MG TABLET PO PRN (19:59)
[2018-05-06 06:27] VITALS: BP 108/61
[2018-05-06] MEDS ORDERED: DIVA250T45 PO (08:25)
[2018-05-06] MEDS ORDERED: FERR-89 PO (08:25)
[2018-05-06 08:29] VITALS: BP 116/68
[2018-05-06] MEDS: NICOTINE 14 MG/24 HOUR PATCH TD SCH (09:00)
[2018-05-06] MEDS: RisperiDONE 3 MG TABLET PO SCH (09:42)
[2018-05-06] MEDS: DIVALPROEX SODIUM 250 MG ER TABLET PO SCH (09:42)
[2018-05-06] MEDS: FERROUS SULFATE 325 MG EC TABLET PO SCH (09:42)
[2018-05-06] MEDS: SERTRALINE HCL 50 MG TABLET PO SCH (09:43)
== END 2018-05-06 11:01 | disposition home or self-care (01) | DRG 750 ==
LOC: B2S 23:42
PROVIDERS: ADMIT Psychiatry & Neurology Psychiatry; ATTEND Psychiatry & Neurology Psychiatry
DX: F25.0 Schizoaffective disorder, bipolar type (principal); R45.851 Suicidal ideations; J44.9 Chronic obstructive pulmonary disease, unspecified; E87.6 Hypokalemia; D64.9 Anemia, unspecified; F41.9 Anxiety disorder, unspecified; G47.00 Insomnia, unspecified; Z79.899 Other long term (current) drug therapy; F15.90 Other stimulant use, unspecified, uncomplicated
CPT/HCPCS: 83036; 84132; 84439; 84443; 87081

== ENCOUNTER 2018-05-21 22:38 | Emergency (ER) | payer MEDICAID ==
[~2018-05-21] VITALS: Ht 170.2 cm; Wt 68.2 kg
[~2018-05-21 22:38] MED LIST changes: +DIVA250T45 PO; +FERR-89 PO
[2018-05-21 23:48] LABS: BASOPHILS % (AUTO) 0.3 % (0.0-2.0); EOSINOPHILS % (AUTO) 0.9 % (1.0-6.0); HEMATOCRIT 39.5 % (41-53); HEMOGLOBIN 13.4 g/dL (13.5-17.5); LYMPHOCYTES # (AUTO) 2.2 K/uL (1.0-4.8); LYMPHOCYTES % (AUTO) 16.8 % (22.0-44.0); MEAN CORPUSCULAR HEMOGLOBIN 31.3 pg (26.0-34.0); MEAN CORPUSCULAR HGB CONC 33.9 G/dL (31.0-37.0); MEAN CORPUSCULAR VOLUME 92 fL (80-100); MONOCYTES # (AUTO) 1.4 K/uL (0.1-1.0); MONOCYTES % (AUTO) 10.5 % (2.0-9.0); NEUTROPHILS # (AUTO) 9.2 K/uL (1.8-7.7); NEUTROPHILS % (AUTO) 71.5 % (40.0-70.0); PLATELET COUNT (AUTO) 158 K/uL (150-450); RED BLOOD CELL COUNT(AUTO) 4.28 MIL/uL (4.50-5.90); RED CELL DISTRIBUTION WIDTH 13.5 % (11.5-14.5)
[2018-05-21 23:57] LABS: ANION GAP 10 mmol/L (8-16); CALCIUM, TOTAL 8.9 mg/dL (8.8-10.5); CARBON DIOXIDE 25 mmol/L (22-29); CHLORIDE 102 mmol/L (98-107); CREATININE 0.94 mg/dL (0.60-1.30); GLOMERULAR FILTR. RATE CALC > 60 mL/min (>60); GLUCOSE,RANDOM 106 mg/dL (70-110); POTASSIUM 3.5 mmol/L (3.5-5.1); SODIUM SERUM 137 mmol/L (136-145); UREA NITROGEN, BLOOD 13 mg/dL (7-18)
[2018-05-22 00:03] LABS: ALANINE AMINOTRANSFERASE 26 U/L (12-78); ALBUMIN 3.8 g/dL (3.4-5.0); ALKALINE PHOSPHATASE 70 U/L (46-116); ASPARTATE AMINOTRANSFERASE 45 U/L (15-37); BILIRUBIN,TOTAL 0.7 mg/dL (0.1-1.0); TOTAL PROTEIN, SERUM 7.5 g/dL (6.4-8.2)
[2018-05-22 00:17] LABS: VALPROIC ACID < 3 mcg/mL (50-100)
[2018-05-22 01:43] VITALS: BP 149/88
== END 2018-05-22 01:47 | disposition home or self-care (01) ==
LOC: EMS 22:39
DX: F32.9 Major depressive disorder, single episode, unspecified (principal); R45.851 Suicidal ideations; F20.9 Schizophrenia, unspecified; F15.10 Other stimulant abuse, uncomplicated; F12.90 Cannabis use, unspecified, uncomplicated; Z59.0 Homelessness
CPT/HCPCS: 36415; 80053; 80164; 85025; 99285; G0480

== ENCOUNTER 2018-10-29 01:56 | Emergency (ER) | payer MEDICAID ==
[~2018-10-29] VITALS: Ht 170.2 cm; Wt 59.0 kg
[~2018-10-29 01:56] MED LIST changes: +BENZ0.5T44 PO; +DIVA-76 PO; -DIVA250T45 PO; -FERR-89 PO; +RISP2 PO; -RISP3 PO; -TRAZ-220 PO
[2018-10-29 03:03] LABS: AMPHET/METH SCREEN,URINE POSITIVE (NEGATIVE); BARBITURATE SCREEN, URINE NEGATIVE (NEGATIVE); BENZODIAZEPINES SCREEN,URINE NEGATIVE (NEGATIVE); CANNABINOID SCREEN,URINE NEGATIVE (NEGATIVE); COCAINE SCREEN,URINE NEGATIVE (NEGATIVE); METHADONE SCREEN, URINE NEGATIVE (NEGATIVE); OPIATE SCREEN,URINE NEGATIVE (NEGATIVE)
[2018-10-29 03:04] LABS: PHENCYCLIDINE SCREEN,URINE NEGATIVE (NEGATIVE)
[2018-10-29 03:07] LABS: BASOPHILS % (AUTO) 0.9 % (0.0-2.0); HEMATOCRIT 41.3 % (41-53); HEMOGLOBIN 13.8 g/dL (13.5-17.5); LYMPHOCYTES # (AUTO) 1.4 K/uL (1.0-4.8); MEAN CORPUSCULAR HEMOGLOBIN 30.7 pg (26.0-34.0); MEAN CORPUSCULAR HGB CONC 33.5 G/dL (31.0-37.0); MEAN CORPUSCULAR VOLUME 92 fL (80-100); MONOCYTES # (AUTO) 0.7 K/uL (0.1-1.0); NEUTROPHILS # (AUTO) 3.5 K/uL (1.8-7.7); NEUTROPHILS % (AUTO) 61.1 % (40.0-70.0); PLATELET COUNT (AUTO) 162 K/uL (150-450); RED BLOOD CELL COUNT(AUTO) 4.51 MIL/uL (4.50-5.90); RED CELL DISTRIBUTION WIDTH 13.7 % (11.5-14.5)
[2018-10-29 03:14] LABS: ANION GAP 5 mmol/L (8-16); CALCIUM, TOTAL 8.6 mg/dL (8.8-10.5); CARBON DIOXIDE 31 mmol/L (22-29); CHLORIDE 102 mmol/L (98-107); CREATININE 0.73 mg/dL (0.60-1.30); GLOMERULAR FILTR. RATE CALC > 60 mL/min (>60); GLUCOSE,RANDOM 97 mg/dL (70-110); POTASSIUM 3.7 mmol/L (3.5-5.1); SODIUM SERUM 138 mmol/L (136-145); UREA NITROGEN, BLOOD 9 mg/dL (7-18)
[2018-10-29 03:19] LABS: ALANINE AMINOTRANSFERASE 27 U/L (12-78); ALBUMIN 3.4 g/dL (3.4-5.0); ALKALINE PHOSPHATASE 67 U/L (46-116); ASPARTATE AMINOTRANSFERASE 25 U/L (15-37); BILIRUBIN,TOTAL 0.2 mg/dL (0.1-1.0); TOTAL PROTEIN, SERUM 6.6 g/dL (6.4-8.2)
[2018-10-29 05:30] VITALS: BP 127/70
== END 2018-10-29 06:06 | disposition home or self-care (01) ==
LOC: EMS 01:57
DX: F25.9 Schizoaffective disorder, unspecified (principal); F32.9 Major depressive disorder, single episode, unspecified; F15.10 Other stimulant abuse, uncomplicated; F11.90 Opioid use, unspecified, uncomplicated; F12.90 Cannabis use, unspecified, uncomplicated; F17.210 Nicotine dependence, cigarettes, uncomplicated
CPT/HCPCS: 36415; 80053; 80307; 85025; 99284; G0480

== ENCOUNTER 2018-11-14 23:48 | Inpatient (IN) | payer MEDICAID ==
[~2018-11-14] VITALS: Ht 170.2 cm; Wt 73.3 kg
[2018-11-15] MEDS ORDERED: ZOLPIDEM TARTRATE 10 MG TABLET PO PRN (03:00)
[2018-11-15 03:55] VITALS: BP 136/84
[2018-11-15] MEDS ORDERED: DOCUSATE SODIUM 100 MG CAPSULE PO PRN (06:30)
[2018-11-15] MEDS ORDERED: ONDANSETRON HCL 4 MG TABLET PO PRN (06:30)
[2018-11-15] MEDS ORDERED: CloNIDine HCL 0.1 MG TABLET PO PRN (06:30)
[2018-11-15] MEDS ORDERED: IBUPROFEN 400 MG TABLET PO PRN (06:30)
[2018-11-15] MEDS ORDERED: LOPERAMIDE HCL 2 MG CAPSULE PO PRN (06:30)
[2018-11-15] MEDS ORDERED: MAGNESIUM HYDROXIDE SUSPENSION 30 ML UDCUP PO PRN (06:30)
[2018-11-15] MEDS ORDERED: MAG HYDROX/AL HYDROX/SIMETH ES 30 ML SUSPENSION UDCUP PO PRN (06:30)
[2018-11-15] MEDS ORDERED: PETROLATUM,WHITE 71 GM JELLY TP PRN (06:30)
[2018-11-15] MEDS ORDERED: ALBUTEROL SULFATE HFA 90 MCG/PUFF 8 GM INHALER IH PRN (06:30)
[2018-11-15] MEDS ORDERED: ACETAMINOPHEN 325 MG TABLET PO PRN (06:30)
[2018-11-15] MEDS: NICOTINE 14 MG/24 HOUR PATCH TD SCH (08:35)
[2018-11-15 08:45] LABS: BASOPHILS % (AUTO) 0.3 % (0.0-2.0); EOSINOPHILS % (AUTO) 2.6 % (1.0-6.0); HEMOGLOBIN 13.6 g/dL (13.5-17.5); LYMPHOCYTES # (AUTO) 1.8 K/uL (1.0-4.8); LYMPHOCYTES % (AUTO) 20.1 % (22.0-44.0); MEAN CORPUSCULAR HEMOGLOBIN 31.1 pg (26.0-34.0); MEAN CORPUSCULAR VOLUME 92 fL (80-100); MONOCYTES % (AUTO) 10.5 % (2.0-9.0); NEUTROPHILS % (AUTO) 66.5 % (40.0-70.0); PLATELET COUNT (AUTO) 223 K/uL (150-450); RED BLOOD CELL COUNT(AUTO) 4.37 MIL/uL (4.50-5.90); RED CELL DISTRIBUTION WIDTH 14.2 % (11.5-14.5)
[2018-11-15 09:12] VITALS: BP 118/63
[2018-11-15 09:17] LABS: ALANINE AMINOTRANSFERASE 20 U/L (12-78); ALBUMIN 3.2 g/dL (3.4-5.0); ALKALINE PHOSPHATASE 82 U/L (46-116); ANION GAP 8 mmol/L (8-16); ASPARTATE AMINOTRANSFERASE 18 U/L (15-37); BILIRUBIN,TOTAL 0.2 mg/dL (0.1-1.0); CALCIUM, TOTAL 8.5 mg/dL (8.8-10.5); CARBON DIOXIDE 29 mmol/L (22-29); CHLORIDE 105 mmol/L (98-107); CHOL/HDL RATIO 2.5 (4.2-7.3); CHOLESTEROL 114 mg/dL (131-200); CREATININE 0.67 mg/dL (0.60-1.30); FREE T4 (FREE THYROXINE) 1.09 ng/dL (0.76-1.46); GLOMERULAR FILTR. RATE CALC > 60 mL/min (>60); GLUCOSE,RANDOM 84 mg/dL (70-110); HDL CHOLESTEROL 46 mg/dL (40-60); LDL CHOL (CALC.) 59 mg/dL (0-130); POTASSIUM 3.8 mmol/L (3.5-5.1); SODIUM SERUM 142 mmol/L (136-145); THYROID STIMULATING HORMONE 1.14 uIU/mL (0.36-3.74); TOTAL PROTEIN, SERUM 6.4 g/dL (6.4-8.2); TRIGLYCERIDES 46 mg/dL (15-150); UREA NITROGEN, BLOOD 16 mg/dL (7-18)
[2018-11-15] MEDS ORDERED: HALOPERIDOL 5 MG TABLET PO PRN (13:00)
[2018-11-15] MEDS ORDERED: LORazepam 2 MG TABLET PO PRN (13:00)
[2018-11-16 00:40] VITALS: BP 107/60
[2018-11-16] MEDS: NICOTINE 14 MG/24 HOUR PATCH TD SCH (08:25)
[2018-11-16] MEDS: FLUoxetine HCL 20 MG CAPSULE PO SCH (08:25)
[2018-11-16] MEDS: ARIPiprazole 10 MG TABLET PO SCH (08:25)
[2018-11-16 11:52] LABS: HIV 1-2 SCREEN 4TH GEN W/RFLX Non Reactive (Non Reactive)
[2018-11-16 16:18] VITALS: BP 119/77
[2018-11-16] MEDS: GuaiFENesin/D-METHORPHAN [SUGAR-FREE] 200-20MG/10 ML SYRUP UDCUP PO PRN (18:23)
[2018-11-17 06:11] VITALS: BP 123/62
[2018-11-17] MEDS: ARIPiprazole 10 MG TABLET PO SCH ×2 (08:32→09:00)
[2018-11-17] MEDS: FLUoxetine HCL 20 MG CAPSULE PO SCH ×2 (08:32→09:00)
[2018-11-17] MEDS: NICOTINE 14 MG/24 HOUR PATCH TD SCH ×2 (08:33→09:00)
[2018-11-17 08:40] VITALS: BP 129/68
[2018-11-17] MEDS: GuaiFENesin/D-METHORPHAN [SUGAR-FREE] 200-20MG/10 ML SYRUP UDCUP PO PRN (17:19)
[2018-11-18 06:42] VITALS: BP 135/70
[2018-11-18] MEDS: FLUoxetine HCL 20 MG CAPSULE PO SCH (09:39)
[2018-11-18] MEDS: ARIPiprazole 10 MG TABLET PO SCH (09:39)
[2018-11-18] MEDS: NICOTINE 14 MG/24 HOUR PATCH TD SCH (10:16)
[2018-11-18 16:10] VITALS: BP 101/60
[2018-11-19 04:15] VITALS: BP 111/68
[2018-11-19 08:19] VITALS: BP 126/70
[2018-11-19] MEDS: FLUoxetine HCL 20 MG CAPSULE PO SCH (08:39)
[2018-11-19] MEDS: NICOTINE 14 MG/24 HOUR PATCH TD SCH (09:00)
[2018-11-19] MEDS ORDERED: ARIPiprazole 15 MG TABLET PO SCH (09:00)
[2018-11-19] MEDS ORDERED: FLUO-191 PO (12:33)
[2018-11-19] MEDS ORDERED: ARIP15TA2 PO (12:33)
== END 2018-11-19 15:45 | disposition home or self-care (01) | DRG 750 ==
LOC: B2S 11-15 03:11
DX: F25.1 Schizoaffective disorder, depressive type (principal); Z59.0 Homelessness; F15.90 Other stimulant use, unspecified, uncomplicated; Z28.21 Immunization not carried out because of patient refusal; F41.9 Anxiety disorder, unspecified; G47.00 Insomnia, unspecified; J44.9 Chronic obstructive pulmonary disease, unspecified; Z91.5 Personal history of self-harm; R63.0 Anorexia; F19.10 Other psychoactive substance abuse, uncomplicated
CPT/HCPCS: 84439; 84443; 87081; 87389; 90686

== ENCOUNTER 2018-11-27 13:02 | Inpatient (IN) | payer MEDICAID ==
[~2018-11-27] VITALS: Ht 170.2 cm; Wt 74.0 kg
[~2018-11-27 13:02] MED LIST changes: +ARIP15TA2 PO; -BENZ0.5T44 PO; -DIVA-76 PO; +FLUO-191 PO; -RISP2 PO; -SERT50TA12 PO
[2018-11-27] MEDS ORDERED: LORazepam 2 MG TABLET PO PRN (18:30)
[2018-11-27] MEDS ORDERED: ZOLPIDEM TARTRATE 10 MG TABLET PO PRN (18:30)
[2018-11-27] MEDS ORDERED: HALOPERIDOL 5 MG TABLET PO PRN (18:30)
[2018-11-27 19:04] VITALS: BP 111/74
[2018-11-28 05:44] VITALS: BP 107/71
[2018-11-28 08:58] VITALS: BP 105/62
[2018-11-28] MEDS: FLUoxetine HCL 20 MG CAPSULE PO SCH (12:20)
[2018-11-28] MEDS: ARIPiprazole 15 MG TABLET PO SCH (12:20)
[2018-11-29 06:07] VITALS: BP 112/66
[2018-11-29] MEDS: ARIPiprazole 15 MG TABLET PO SCH (08:34)
[2018-11-29] MEDS: FLUoxetine HCL 20 MG CAPSULE PO SCH (08:34)
[2018-11-30 08:23] VITALS: BP 116/62
[2018-11-30 08:24] LABS: BASOPHILS % (AUTO) 0.7 % (0.0-2.0); EOSINOPHILS % (AUTO) 1.6 % (1.0-6.0); HEMATOCRIT 42.2 % (41-53); HEMOGLOBIN 14.6 g/dL (13.5-17.5); LYMPHOCYTES % (AUTO) 29.2 % (22.0-44.0); MEAN CORPUSCULAR HEMOGLOBIN 31.5 pg (26.0-34.0); MEAN CORPUSCULAR HGB CONC 34.5 G/dL (31.0-37.0); MEAN CORPUSCULAR VOLUME 91 fL (80-100); MONOCYTES # (AUTO) 0.5 K/uL (0.1-1.0); MONOCYTES % (AUTO) 7.9 % (2.0-9.0); NEUTROPHILS # (AUTO) 4.1 K/uL (1.8-7.7); NEUTROPHILS % (AUTO) 60.6 % (40.0-70.0); PLATELET COUNT (AUTO) 212 K/uL (150-450); RED BLOOD CELL COUNT(AUTO) 4.62 MIL/uL (4.50-5.90); RED CELL DISTRIBUTION WIDTH 14.1 % (11.5-14.5)
[2018-11-30 08:29] LABS: HEMOGLOBIN A1C 5.5 % (4.5-6.2)
[2018-11-30 08:57] LABS: ALANINE AMINOTRANSFERASE 16 U/L (12-78); ALBUMIN 3.4 g/dL (3.4-5.0); ALKALINE PHOSPHATASE 59 U/L (46-116); ANION GAP 5 mmol/L (8-16); ASPARTATE AMINOTRANSFERASE 13 U/L (15-37); BILIRUBIN,TOTAL 0.2 mg/dL (0.1-1.0); CALCIUM, TOTAL 8.6 mg/dL (8.8-10.5); CARBON DIOXIDE 31 mmol/L (22-29); CHLORIDE 101 mmol/L (98-107); CHOL/HDL RATIO 3.5 (4.2-7.3); CHOLESTEROL 153 mg/dL (131-200); CREATININE 0.78 mg/dL (0.60-1.30); FREE T4 (FREE THYROXINE) 0.83 ng/dL (0.76-1.46); GLOMERULAR FILTR. RATE CALC > 60 mL/min (>60); GLUCOSE,RANDOM 81 mg/dL (70-110); HDL CHOLESTEROL 44 mg/dL (40-60); LDL CHOL (CALC.) 94 mg/dL (0-130); POTASSIUM 4.2 mmol/L (3.5-5.1); SODIUM SERUM 137 mmol/L (136-145); THYROID STIMULATING HORMONE 2.03 uIU/mL (0.36-3.74); TOTAL PROTEIN, SERUM 6.3 g/dL (6.4-8.2); TRIGLYCERIDES 74 mg/dL (15-150); UREA NITROGEN, BLOOD 14 mg/dL (7-18)
[2018-11-30] MEDS: FLUoxetine HCL 20 MG CAPSULE PO SCH (09:01)
[2018-11-30] MEDS: ARIPiprazole 15 MG TABLET PO SCH (09:01)
[2018-12-01] MEDS: FLUoxetine HCL 20 MG CAPSULE PO SCH (08:31)
[2018-12-01] MEDS: ARIPiprazole 15 MG TABLET PO SCH (08:31)
[2018-12-01 09:13] VITALS: BP 107/65
== END 2018-12-01 17:50 | disposition home or self-care (01) | DRG 750 ==
LOC: B3A 19:32
DX: F25.1 Schizoaffective disorder, depressive type (principal); R45.851 Suicidal ideations; F41.9 Anxiety disorder, unspecified; J44.9 Chronic obstructive pulmonary disease, unspecified; G47.00 Insomnia, unspecified; R63.0 Anorexia; F19.10 Other psychoactive substance abuse, uncomplicated; Z71.51 Drug abuse counseling and surveillance of drug abuser; Z56.0 Unemployment, unspecified; Z68.25 Body mass index [BMI] 25.0-25.9, adult; Z79.899 Other long term (current) drug therapy
CPT/HCPCS: 83036; 84439; 84443; 87081

== ENCOUNTER 2019-05-15 11:14 | Inpatient (IN) | payer SELFPAY ==
[~2019-05-15] VITALS: Ht 167.6 cm; Wt 72.6 kg
[2019-05-15] MEDS ORDERED: ZOLPIDEM TARTRATE 10 MG TABLET PO PRN (12:15)
[2019-05-15 12:47] LABS: BASOPHILS % (AUTO) 0.8 % (0.0-2.0); EOSINOPHILS % (AUTO) 0.1 % (1.0-6.0); HEMOGLOBIN 14.3 g/dL (13.5-17.5); LYMPHOCYTES # (AUTO) 1.3 K/uL (1.0-4.8); LYMPHOCYTES % (AUTO) 15.7 % (22.0-44.0); MEAN CORPUSCULAR HEMOGLOBIN 30.7 pg (26.0-34.0); MEAN CORPUSCULAR HGB CONC 32.5 G/dL (31.0-37.0); MEAN CORPUSCULAR VOLUME 95 fL (80-100); MONOCYTES # (AUTO) 0.8 K/uL (0.1-1.0); MONOCYTES % (AUTO) 9.8 % (2.0-9.0); NEUTROPHILS # (AUTO) 6.1 K/uL (1.8-7.7); NEUTROPHILS % (AUTO) 73.6 % (40.0-70.0); PLATELET COUNT (AUTO) 186 K/uL (150-450); RED BLOOD CELL COUNT(AUTO) 4.65 MIL/uL (4.50-5.90); RED CELL DISTRIBUTION WIDTH 13.8 % (11.5-14.5)
[2019-05-15 13:23] LABS: ANION GAP 12 mmol/L (8-16); CARBON DIOXIDE 28 mmol/L (22-29); CHLORIDE 102 mmol/L (98-107); CREATININE 0.99 mg/dL (0.60-1.30); GLOMERULAR FILTR. RATE CALC > 60 mL/min (>60); GLUCOSE,RANDOM 90 mg/dL (70-110); POTASSIUM 3.5 mmol/L (3.5-5.1); SODIUM SERUM 142 mmol/L (136-145); UREA NITROGEN, BLOOD 15 mg/dL (7-18)
[2019-05-15 13:28] LABS: ALANINE AMINOTRANSFERASE 22 U/L (12-78); ALBUMIN 3.9 g/dL (3.4-5.0); ALKALINE PHOSPHATASE 79 U/L (46-116); ASPARTATE AMINOTRANSFERASE 43 U/L (15-37); BILIRUBIN,TOTAL 0.9 mg/dL (0.1-1.0); TOTAL PROTEIN, SERUM 7.7 g/dL (6.4-8.2)
[2019-05-15 15:59] LABS: AMPHET/METH SCREEN,URINE POSITIVE (NEGATIVE); BARBITURATE SCREEN, URINE NEGATIVE (NEGATIVE); BENZODIAZEPINES SCREEN,URINE NEGATIVE (NEGATIVE); CANNABINOID SCREEN,URINE NEGATIVE (NEGATIVE); COCAINE SCREEN,URINE NEGATIVE (NEGATIVE); METHADONE SCREEN, URINE NEGATIVE (NEGATIVE); OPIATE SCREEN,URINE NEGATIVE (NEGATIVE); PHENCYCLIDINE SCREEN,URINE NEGATIVE (NEGATIVE)
[2019-05-15 18:50] VITALS: BP 107/57
[2019-05-15] MEDS ORDERED: ONDANSETRON HCL 4 MG TABLET PO PRN (19:00)
[2019-05-15] MEDS ORDERED: IBUPROFEN 600 MG TABLET PO PRN (19:00)
[2019-05-15] MEDS ORDERED: ALBUTEROL SULFATE HFA 90 MCG/PUFF 8 GM INHALER IH PRN (19:00)
[2019-05-15] MEDS ORDERED: LOPERAMIDE HCL 2 MG CAPSULE PO PRN (19:00)
[2019-05-15] MEDS ORDERED: MAGNESIUM HYDROXIDE SUSPENSION 30 ML UDCUP PO PRN (19:00)
[2019-05-15] MEDS ORDERED: DOCUSATE SODIUM 100 MG CAPSULE PO PRN (19:00)
[2019-05-15] MEDS ORDERED: ACETAMINOPHEN 325 MG TABLET PO PRN (19:00)
[2019-05-15] MEDS ORDERED: BACITRACIN 28.4 GM OINTMENT TP PRN (19:00)
[2019-05-15] MEDS ORDERED: CloNIDine HCL 0.1 MG TABLET PO PRN (19:00)
[2019-05-15] MEDS ORDERED: MAG HYDROX/AL HYDROX/SIMETH ES 30 ML SUSPENSION UDCUP PO PRN (19:00)
[2019-05-15] MEDS ORDERED: OMEPRAZOLE 20 MG CAPSULE PO PRN (19:00)
[2019-05-15] MEDS ORDERED: BENZOCAINE/MENTHOL LOZENGE MM PRN (19:00)
[2019-05-15] MEDS ORDERED: PETROLATUM,WHITE 28 GM JELLY TP PRN (19:00)
[2019-05-15] MEDS ORDERED: PNEUMOCOCCAL VACCINE POLYVALENT 0.5 ML VIAL [PPSV23] IM ONE (19:15)
[2019-05-15] MEDS: HALOPERIDOL 5 MG TABLET PO PRN (20:36)
[2019-05-15] MEDS: LORazepam 2 MG TABLET PO PRN (20:36)
[2019-05-16 08:06] VITALS: BP 100/63
[2019-05-16] MEDS ORDERED: FLUO-191 PO (13:38)
[2019-05-16] MEDS ORDERED: ARIP15TA2 PO (13:38)
[2019-05-16] MEDS: HALOPERIDOL 5 MG TABLET PO PRN (13:39)
[2019-05-16] MEDS: LORazepam 2 MG TABLET PO PRN (13:39)
[2019-05-17] MEDS ORDERED: ARIPiprazole 15 MG TABLET PO SCH (09:00)
[2019-05-17] MEDS ORDERED: FLUoxetine HCL 20 MG CAPSULE PO SCH (09:00)
== END 2019-05-16 15:40 | DRG 885 ==
LOC: EDBD 11:18 → EMS 11:18 → B3A 15:15
DX: F25.1 Schizoaffective disorder, depressive type (principal); R45.851 Suicidal ideations; F25.0 Schizoaffective disorder, bipolar type; F17.210 Nicotine dependence, cigarettes, uncomplicated; F15.10 Other stimulant abuse, uncomplicated; F41.9 Anxiety disorder, unspecified; F32.9 Major depressive disorder, single episode, unspecified; F19.10 Other psychoactive substance abuse, uncomplicated; G47.00 Insomnia, unspecified; Z86.59 Personal history of other mental and behavioral disorders; Z91.5 Personal history of self-harm
CPT/HCPCS: 87081; 99406; G0480